=== PATIENT | female | born 1945 | race Caucasian/White ===

== ENCOUNTER 2020-05-17 11:37 | Day surgery (SDC) | payer MEDICARE, BC ==
[~2020-05-17] VITALS: Ht 167.6 cm; Wt 60.8 kg
[2020-05-17] MEDS ORDERED: LIDOCAINE 1%, 20ML ONE (12:34)
== END 2020-05-17 13:51 | disposition home or self-care (01) ==
LOC: CACL 11:37
PROVIDERS: ATTEND Internal Medicine Clinical Cardiac Electrophysiology
DX: I63.9 Cerebral infarction, unspecified (principal); J45.909 Unspecified asthma, uncomplicated; E11.9 Type 2 diabetes mellitus without complications; Z79.82 Long term (current) use of aspirin; Z79.899 Other long term (current) drug therapy; Z88.2 Allergy status to sulfonamides
CPT/HCPCS: 33285; C1764

== ENCOUNTER 2020-06-03 13:37 | Outpatient (CLI) | payer MEDICARE, BC | END 2020-06-03 23:59 | disposition home or self-care (01) | LOC: CVU 13:37 | PROVIDERS: ATTEND Internal Medicine Clinical Cardiac Electrophysiology | DX: I08.3 Combined rheumatic disorders of mitral, aortic and tricuspid valves (principal); I63.9 Cerebral infarction, unspecified | CPT/HCPCS: 93306 ==